=== PATIENT | female | born 1960 | race Caucasian/White ===

== ENCOUNTER 2021-08-22 18:04 | Emergency (ER) | payer MEDICAID ==
[~2021-08-22] VITALS: Ht 157.5 cm; Wt 78.9 kg
--- NOTE | 2021-08-22 18:22 | NUR ---
COVID swab collected and sent to LAB.
--- NOTE | 2021-08-22 18:24 | NUR ---
Dr Villa at the bedside for MSE.
[2021-08-22] MEDS ORDERED: ONDANSETRON 4 MG/2 ML VIAL IV ONE (18:30)
[2021-08-22] MEDS ORDERED: HYDROMORPHONE 1 MG/1 ML DISP.SYRIN IV ONE (18:30)
[2021-08-22] MEDS ORDERED: HYDROMORPHONE 1 MG/1 ML DISP.SYRIN ONE (18:46)
[2021-08-22] MEDS ORDERED: ONDANSETRON 4 MG/2 ML VIAL ONE (18:46)
[2021-08-22 18:55] LABS: HEMATOCRIT 31.2 % (31.2-41.9); MEAN CORPUSCULAR HEMOGLOBIN 32.9 uug (24.7-32.8); MEAN CORPUSCULAR VOLUME 95.3 fL (75.5-95.3); PLATELET COUNT (AUTO) 155 K/uL (179-408)
[2021-08-22] MEDS ORDERED: LACTULOSE 20 G/30 ML LIQUID UDC ONE (19:38)
[2021-08-22] MEDS ORDERED: LACTULOSE 20 G/30 ML LIQUID UDC PO ONE (19:45)
--- NOTE | 2021-08-22 19:46 | NUR ---
pt ambulated to the bathroom at the nurses station without assist with steady gait.
[2021-08-22 20:21] LABS: BAND % (MANUAL) 2 % (0-10); BASOPHILS % (MANUAL) 2 % (0-2); LYMPHOCYTES % (MANUAL) 25 % (20-40); MONOCYTES % (MANUAL) 3 % (2-10); NEUTROPHILS % (MANUAL) 68 % (42-75)
[2021-08-22 20:40] LABS: CREATININE 0.8 mg/dL (0.6-1.3); POTASSIUM 3.5 mmol/L (3.5-5.1)
[2021-08-22 20:43] LABS: *BILIRUBIN,URIN NEGATIVE (NEGATIVE); *BLOOD, URINE NEGATIVE (NEGATIVE); *CLARITY,URINE CLOUDY (CLEAR); *COLOR,URINE H (YELLOW); *KETONES,URINE TRACE (NEGATIVE); *UROBILINOGEN,URINE 0.2 E.U./dl (NORMAL); LEUKOCYTE ESTERASE ,URINE TRACE (NEGATIVE); NITRITE, URINE NEGATIVE (NEGATIVE); PH,URINE 5.5 (5.0-8.0); UGLUCOSE NEGATIVE (NEGATIVE)
[2021-08-22 20:44] LABS: BACTERIA,URINE FEW /HPF (NONE SEEN); RBC,URINE 0-3 /HPF (0-3); SQUAMOUS EPITHELIAL CELL,UR MODERATE /HPF (NONE SEEN); YEAST,URINE MODERATE /HPF (NONE SEEN)
[2021-08-22 20:45] LABS: BILIRUBIN,DIRECT 0.9 mg/dL (0.0-0.2); BILIRUBIN,TOTAL 2.1 mg/dL (0.2-1.0); TOTAL PROTEIN, SERUM 7.1 g/dL (6.4-8.2)
--- NOTE | 2021-08-22 20:50 | NUR ---
Call to [facility] for admission
[2021-08-22] MEDS ORDERED: FLUCONAZOLE 100 MG TABLET PO ONE (21:00)
--- NOTE | 2021-08-22 21:04 | NUR ---
Dr. Iraheta from [place] called back and is speaking with Dr. Villa.
[2021-08-22] MEDS ORDERED: FLUCONAZOLE 100 MG TABLET ONE (21:07)
--- NOTE | 2021-08-22 21:18 | NUR ---
Dr. Villa in the room speaking with the pt.
[2021-08-22] MEDS ORDERED: METOCLOPRAMIDE HCL 10 MG/2 ML VIAL ONE (21:21)
[2021-08-22] MEDS ORDERED: diphenhydrAMINE 50 MG/1 ML VIAL ONE (21:21)
[2021-08-22] MEDS ORDERED: diphenhydrAMINE 50 MG/1 ML VIAL IV ONE (21:30)
[2021-08-22] MEDS ORDERED: METOCLOPRAMIDE HCL 10 MG/2 ML VIAL IV ONE (21:30)
--- NOTE | 2021-08-22 23:07 | NUR ---
call to [facility].
--- NOTE | 2021-08-23 00:15 | NUR ---
PT ACCEPTED TO [facility] ROOM: ER REPORT #: [phone] S ETA [id number]
--- NOTE | 2021-08-23 00:34 | NUR ---
pt aware she will be transferred to [facility].
--- NOTE | 2021-08-23 00:40 | NUR ---
report given to Sukumar DAVIS to [facility] pt to go to [facility] transport at 0115.
--- NOTE | 2021-08-23 01:13 | NUR ---
prn transport here #84 to transport pt to [facility].
== END 2021-08-23 01:17 | disposition short-term general hospital (02) ==
LOC: ER 18:07
DX: R10.84 Generalized abdominal pain (principal); K70.31 Alcoholic cirrhosis of liver with ascites; K21.9 Gastro-esophageal reflux disease without esophagitis; Z20.822 Contact with and (suspected) exposure to COVID-19
CPT/HCPCS: 36415; 80048; 80076; 81001; 82140; 83690; 85007; 85025; 85730; 87040 ×2; 87086; 87426; 93005; 96374; 96375; 99285; J1170; J1200; J2405; J2765; 70030-TC; A4663